=== PATIENT | male | born 1980 | race Caucasian/White ===

== ENCOUNTER 2023-07-20 22:54 | Emergency (ER) | payer OTHER, SELFPAY ==
[2023-07-20 23:00] VITALS: BP 135/92; PULSE 87; TEMP 37.1; O2SAT 96; BMI 26.6
--- NOTE | 2023-07-20 23:17 | ED_ITS ---
HPI - Ear Problem General Chief complaint: Ear Stated complaint: R EAR PAIN Time Seen by Provider: 07/20/23 23:12 Source: patient Mode of arrival: walk-in Limitations: no limitations History of Present Illness HPI Narrative: presents complaining of worsening ear pain for the past couple of days. no dizziness but pain of the right side of his head. No fever. hearing muffled. no associated nausea Related Data Home Medications ?Medication ?Instructions ?Recorded ?Confirmed No Known Home Medications 07/20/23 07/20/23 Allergies Allergy/AdvReac Type Severity Reaction Status Date / Time Penicillins Allergy Verified 07/20/23 23:05 Review of Systems ROS Status of ROS 10 or more systems reviewed and unremark able except as noted in history and below Exam Constitutional Vital Signs, click to edit/add: Last Vital Signs Temp 98.7 F 07/20/23 23:00 Pulse 87 07/20/23 23:00 Resp 16 07/20/23 23:00 BP 135/92 H 07/20/23 23:00 Pulse Ox 96 07/20/23 23:00 Common normals: no apparent distress, average body habitus, oriented x3, no limitations, healthy appearing, alert and well nourished [facility] Other: swelling and narrowing of the right ear canal Eye Common normals: PERRL, EOMs intact bilaterally and conjunctivae normal Respiratory Common normals: normal respiratory effort, no retractions, no use of accessory muscles and clear to auscultation bilaterally Cardio Common normals: regular rate, regular rhythm, S1 normal heart sound and S2 normal heart sound GI Common normals: Normal to inspection, nondistended, normoactive bowel sounds present, soft to palpation and non-tender Extremity Common normals: normal to inspection and full ROM Neuro Common normals: oriented x3, CN's II-XII intact bilaterally, moves all extremities and no focal motor deficits Psych Appearance: grossly normal Course Vital Signs Vital signs: Vital Signs Temperature 98.7 F 07/20/23 23:00 Pulse Rate 87 07/20/23 23:00 Respiratory Rate 16 07/20/23 23:00 Blood Pressure 135/92 H 07/20/23 23:00 Pulse Oximetry 96 07/20/23 23:00 Temperature 98.7 F 07/20/23 23:00 Pulse Rate 87 07/20/23 23:00 Respiratory Rate 16 07/20/23 23:00 Blood Pressure 135/92 H 07/20/23 23:00 Pulse Oximetry 96 07/20/23 23:00 Medical Decision Making MDM Narrative Medical decision making narrative: presents with swelling infection right ear canal. Not able to view TM as the canal is narrow. No obvious facial swelling. Patient treated in the department with clindamycin and prednisone and discharged home with instructions of close followup Discharge Plan Discharge Stand Alone Forms: Portal Instructions Chief Complaint: Ear Clinical Impression: Cellulitis of right ear canal Patient Disposition: Home, Self-Care Prescriptions / Home Meds: No Action No Known Home Medications Print Language: Maori Instructions: Cellulitis (ED) Referrals: Physician,Non-Staff, MD [Primary Care Provider] - 1 week
[2023-07-21] MEDS: NEOMYCIN/POLYMYXIN B/HYDROCORTISONE OTIC SOLUTION 200 DROP/10 ML BOTTLE 3 ML OT (00:02)
[2023-07-21] MEDS: CLINDAMYCIN HCL 150 MG CAPSULE 300 MG PO ×2 (00:02→00:03)
[2023-07-21] MEDS: PREDNISONE 20 MG TABLET 40 MG PO (00:03)
[2023-07-21] MEDS: ACETAMINOPHEN 500 MG TABLET 1000 MG PO (00:32)
== END 2023-07-21 00:34 | disposition home or self-care (01) ==
PROVIDERS: Emergency Provider Internal Medicine
DX: H60.11 Cellulitis of right external ear (principal)
CPT/HCPCS: 99283